=== PATIENT | male | born 1970 ===

== ENCOUNTER 2017-07-27 18:24 | Emergency (ER) | payer SELFPAY ==
[2017-07-27 18:29] VITALS: BMI 24.2
[2017-07-27 18:33] VITALS: BP 122/86; PULSE 92; RESP 17; TEMP 98.7; O2SAT 97
[2017-07-27] MEDS ORDERED: Oxycodone/Acetaminophen 5/325 mg Tab PO STA (19:02)
--- NOTE | 2017-07-27 19:07 | ED PDOC ---
Arrival/HPI - General Chief Complaint: Dental Pain Time Seen by Provider: 07/27/17 18:40 Historian: Patient - History of Present Illness Narrative History of Present Illness (Text): 07/27/17 19:07 46YR -year-old male presents today requesting pain medication for his toothache. Patient states his dentist drains and abscess to each side of the mouth yesterday and gave him 2 Vicodin's yesterday which held him over until today. Patient is here requesting 2 Vicodin's to hold him over until he has his dental extraction. Patient denies fevers or chills. Patient states he does not want a prescription he just wants to pills here. Denies trismus or drooling. pt states he is currently on Clindamycin prescribed by his dentist yesterday. Time/Duration: Prior to Arrival Symptom Onset: Gradual Symptom Course: Worsening Quality: Aching, Throbbing Severity Level: 10 Past Medical History - Provider Review Nursing Documentation Reviewed: Yes - Travel History Have you recently traveled outside [place] w/in the past 3 mons?: No - Infectious Disease Hx of Infectious Diseases: None - Tetanus Immunization Tetanus Immunization: Unknown - Cardiac Hx Cardiac Disorders: No - Pulmonary Hx Respiratory Disorders: Yes Hx Asthma: Yes - Neurological Hx Multiple Sclerosis: No - HEENT Hx Epistaxis: No - Renal Hx Pyelonephritis: No - Hematological/Oncological Hx Blood Disorders: No - Integumentary Hx Ramirez: No - Musculoskeletal/Rheumatological Hx Unsteady Gait: No - Gastrointestinal Hx Gastrointestinal Disorders: Yes Hx Bowel Surgery: Yes Hx Gastritis: No - Genitourinary/Gynecological Hx Urinary Tract Infection: No - Psychiatric Hx Schizophrenia: No Hx Substance Use: No - Surgical History Hx Abdominal Aortic Aneurysm Repair: No Other/Comment: bowel surgery - Anesthesia Hx Anesthesia: Yes Hx Anesthesia Reactions: No Family/Social History - Physician Review Nursing Documentation Reviewed: Yes Family/Social History: Unknown Family HX Smoking Status: Never Smoked Hx Alcohol Use: Yes Frequency of alcohol use: Socially Hx Substance Use: No Allergies/Home Meds Allergies/Adverse Reactions: Allergies ibuprofen [From Motrin] Allergy (Verified 07/27/17 18:30) RASH latex Allergy (Verified 07/27/17 18:30) RASH levofloxacin [From Levaquin] Allergy (Verified 07/27/17 18:30) RASH Penicillins Allergy (Verified 07/27/17 18:30) RASH povidone-iodine [From Betadine] Allergy (Verified 07/27/17 18:30) RASH soap [From Betadine] Allergy (Verified 07/27/17 18:30) RASH tramadol Allergy (Verified 07/27/17 18:30) RASH Home Medications: Home Meds Medication Instructions Recorded Confirmed Clindamycin [Cleocin] 600 mg PO QID 07/27/17 07/27/17 Review of Systems - Review of Systems Constitutional: absent: Fatigue, Fevers ENT: Other (dental pain) Respiratory: absent: SOB, Cough Cardiovascular: absent: Chest Pain, Palpitations Gastrointestinal: absent: Abdominal Pain, Nausea, Vomiting Neurological: absent: Headache, Dizziness Physical Exam Vital Signs Reviewed: Yes Vital Signs Temp Pulse Resp BP Pulse Ox 07/27/17 18:32 98.7 F 92 H 17 122/86 97 Temperature: Afebrile Blood Pressure: Normal Pulse: Regular Respiratory Rate: Normal Appearance: Positive for: Well-Appearing, Non-Toxic, Comfortable Pain Distress: None Mental Status: Positive for: Alert and Oriented X 3 - Systems Exam Head: Present: Atraumatic Mouth: Present: Normal Lips, Normal Tounge. No: Drooling, Trismus, Normal Teeth (poor dentition. + dental fractures, no erythema; no edema, no abscess noted. ) Pharnyx: Present: Normal Neck: Present: Normal Range of Motion, Trachea Midline. No: Lymphadenopathy Respiratory/Chest: Present: Clear to Auscultation, Good Air Exchange. No: Respiratory Distress, Accessory Muscle Use Cardiovascular: Present: Regular Rate and Rhythm Neurological: Present: GCS=15 Skin: Present: Warm, Dry, Normal Color. No: Rashes Psychiatric: Present: Alert, Oriented x 3 Medical Decision Making ED Course and Treatment: 07/27/17 19:14 46yr old male presents wanting 2 vicodins for toothache. pt was advised that we do not have vicodin on formulary. advised patient that we will give 1 percocet and i can give an RX to go home. pt NOW requesting 2 percocets and does NOT want an rx. i advised patient that we can not give 2 percocets. pt requesting to speak to my attending. pt seen by dr. frost; he again advised even 1 percocet is more than generous. pt now angry, yelling in er. advised patient to f/u with dentist. advised to continue antibiotics as prescribed. impression; toothache CONTINUE ANTIBIOTICS PRESCRIBED FOLLOW UP WITH THE DENTIST WITHIN THE NEXT 2 DAY RETURN IF SYMPTOMS WORSEN, PERSIST OR IF NEW SYMPTOMS DEVELOP - Medication Orders Current Medication Orders: Oxycodone/Acetaminophen (Percocet 5/325 Mg Tab) 1 tab PO STAT STA Stop: 07/27/17 19:03 Disposition/Present on Arrival - Present on Arrival Any Indicators Present on Arrival: No History of DVT/PE: No History of Uncontrolled Diabetes: No Urinary Catheter: No History of Decub. Ulcer: No History Surgical Site Infection Following: None - Disposition Have Diagnosis and Disposition been Completed?: Yes Diagnosis: Toothache Disposition: HOME/ ROUTINE Disposition Time: 19:04 Patient Plan: Discharge Condition: GOOD Additional Instructions: CONTINUE ANTIBIOTICS PRESCRIBED FOLLOW UP WITH THE DENTIST WITHIN THE NEXT 2 DAY RETURN IF SYMPTOMS WORSEN, PERSIST OR IF NEW SYMPTOMS DEVELOP Referrals: Clarence Valiente DMD [Non-Staff] - Follow up with primary Chuy Alcantar DMD [Staff Provider] - Follow up with primary Rashawn Alvarenga MD [Staff Provider] - Follow up with primary
== END 2017-07-27 19:31 | disposition home or self-care (01) ==
LOC: ED 18:24
DX: K08.89 Other specified disorders of teeth and supporting structures (principal)